=== PATIENT | male | born 1990 | race Caucasian/White ===

== ENCOUNTER 2021-08-04 11:18 | Emergency (ER) | payer BC ==
--- NOTE | 2021-08-04 12:02 | RAD REPORT ---
EXAM DESCRIPTION: Alonso Sanchez (2 Views)08/04/2021 11:57 am CLINICAL HISTORY: Chest pain COMPARISON: None FINDINGS: The lungs appear clear of acute infiltrate. The heart is normal size IMPRESSION: No acute abnormalities displayed
[2021-08-04 13:36] LABS: ALT/SGPT 46 U/L (12-78); AST/SGOT 23 U/L (15-37); Alkaline Phosphatase 70 U/L (45-117); BUN Blood Urea Nitrogen 10 mg/dL (7-18); Bicarbonate 26 mmol/L (21-32); Bilirubin Direct 0.2 mg/dL (0-0.2); Bilirubin Total 0.6 mg/dL (0.2-1.0); Glucose Level 93 mg/dL (74-106); Potassium 3.9 mmol/L (3.5-5.1); Protein, Total 7.9 g/dL (6.4-8.2); Sodium Level 141 mmol/L (136-145); Troponin (Emerg Dept Use Only) < 0.02 ng/mL (0.0-0.045)
--- NOTE | 2021-08-04 13:36 | RAD REPORT ---
EXAM DESCRIPTION: CT - Chest For Pe Angio - 08/04/2021 1:26 pm CLINICAL HISTORY: Chest pain. CHEST PAIN COMPARISON: No comparisons TECHNIQUE: CT angiogram of the pulmonary arteries was performed with MIP. All CT scans are performed using dose optimization technique as appropriate and may include automated exposure control or mA/KV adjustment according to patient size. FINDINGS: No evidence of pulmonary thromboembolism. No acute aortic finding demonstrated. The lungs are clear. No significant pericardial or pleural fluid. No concerning bony finding. IMPRESSION: No evidence of pulmonary thromboembolism. No acute lung findings.
[2021-08-04 13:45] LABS: Absolute Lymphocytes (CBC) 1.3 K/uL (0.7-4.9); Basophils % 0.5 % (0-1.3); Lymphocytes % 14.7 % (15.3-44.8); MPV 7.6 fL (7.6-11.3); RBC Red Blood Cell Count 4.79 M/uL (4.33-5.43)
--- NOTE | 2021-08-04 13:52 | ER ---
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 Happened night but went away. Coronavirus screen: Vaccine status: Patient reports being unvaccinated. Ebola Screen: Patient negative for fever greater than or equal to 101.5 degrees Fahrenheit, and additional compatible Ebola Virus Disease symptoms Patient denies exposure to infectious person. Patient denies travel to an Ebola-affected area in the 21 days before illness onset. Initial Sepsis Screen: Does the patient meet any 2 criteria? HR > 90 bpm. Initial Sepsis Screen: Does the patient have a suspected source of infection? No. Patient's initial sepsis screen is negative. Risk Assessment: Do you want to hurt yourself or someone else? Patient reports no desire to harm self or others. Onset of symptoms was July 31, 2021. 11:42 Method Of Arrival: Ambulatory ss 11:42 Acuity: DARLENE 3 ss Triage Assessment: 11:48 General: Appears uncomfortable, Behavior is calm, cooperative, anxious. Pain: Complains ss of pain in chest. Cardiovascular: Reports chest pain. Respiratory: Reports shortness of breath at rest Airway is patent Trachea midline. Historical: - Allergies: 11:47 No Known Allergies; ss - Home Meds: 11:47 None [Active]; ss - PMHx: 11:47 None; ss - PSHx: 11:47 None; ss - Immunization history:: Adult Immunizations up to date. - Social history:: Smoking status: Patient reports the use of cigarette tobacco products, denies chronic smoking, but will smoke occasionally, Patient uses alcohol, on a daily basis. - Family history:: not pertinent. - Hospitalizations: : No recent hospitalization is reported. Screenin:15 Abuse screen: Denies threats or abuse. Denies injuries from another. Nutritional ss screening: On no prescribed diet. Tuberculosis screening: Never had TB. Fall Risk None identified. Assessment: 12:15 General: Appears in no apparent distress. comfortable, Behavior is calm, cooperative, ss Denies fever, feeling ill, fatigue, chills. Pain: Complains of pain in chest Pain currently is 7 out of 10 on a pain scale. Quality of pain is described as crampy, Pain began suddenly, Is continuous. Neuro: Level of Consciousness is awake, alert, obeys commands, Oriented to person, place, time, situation. Cardiovascular: Capillary refill < 3 seconds is brisk in bilateral fingers. Respiratory: Airway is patent Respiratory effort is even, unlabored, Respiratory pattern is regular, symmetrical. GI: No signs and/or symptoms were reported involving the gastrointestinal system. : No signs and/or symptoms were reported regarding the genitourinary system. EENT: Nares are clear Oral mucosa is moist. Derm: Skin is intact, is healthy with good turgor, Skin is dry, Skin is pink, warm \T\ dry. normal. Musculoskeletal: Circulation, motion, and sensation intact. Range of motion: intact in all extremities, Swelling absent. 14:13 Reassessment: Patient and/or family updated on plan of care and expected duration. Pain ss level reassessed. Patient is alert, oriented x 3, equal unlabored respirations, skin warm/dry/pink. Vital Signs: 11:42 BP 168 / 121 RA Sitting (auto/lg); Pulse 96; Resp 18; Pulse Ox 100% ; Weight 104.33 kg; ss Height 5 ft. 10 in. (177.80 cm); 11:42 BP 180 / 117 RA Sitting (auto/lg); ss 13:39 Temp 98.6(TE); ss 14:11 BP 165 / 84; Pulse 83; Resp 17; Temp 98.5(O); Pulse Ox 100% ; Pain 2/10; jh6 11:42 Body Mass Index 33.00 (104.33 kg, 177.80 cm) ED Course: 11:18 Patient arrived in ED. mr 11:47 Triage completed. ss 11:53 Esteban Sánchez MD is Attending Physician. rn 11:57 XRAY Chest Pa And Lat (2 Views) In Process Unspecified. EDMS 12:55 Clementina Castellon, DENNY is Primary Nurse. ss 13:15 Patient maintains SpO2 saturation greater than 95% on room air. ss 13:15 Inserted saline lock: 22 gauge in left antecubital area, using aseptic technique. Blood ss collected. 13:15 Patient has correct armband on for positive identification. Bed in low position. Call ss light in reach. front desk monitor on. Pulse ox on. NIBP on. 13:[address] [facility] 13:26 CT Chest For PE Angio In Process Unspecified. EDMS 14:11 No provider procedures requiring assistance completed. IV discontinued, intact, ss bleeding controlled, No redness/swelling at site. Pressure dressing applied. 14:11 IV discontinued, intact, bleeding controlled, No redness/swelling at site. Pressure [facility] dressing applied. Administered Medications: No medications were administered Outcome: 13:51 Discharge ordered by . rn 14:11 Discharged to home ambulatory. 14:11 Condition: good 14:11 Demonstrated understanding of instructions, follow-up care. 14:12 Discharged to home ambulatory. 6 14:12 Condition: good 14:12 Discharge instructions given to patient, Instructed on discharge instructions, follow up and referral plans. Demonstrated understanding of instructions, follow-up care. 14:12 Patient left the ED. 6 Signatures: Dispatcher [employer] EDDE GilliamElysia GonzaloEsteban MD MD rn Smirch, Shelby, RN RN ss Hastedt, Jennifer, RN RN [facility]
--- NOTE | 2021-08-04 13:52 | EDPHYS ---
Physician Documentation [facility] Name: Kemal Alvarez Age: 30 yrs Sex: Male : 1990 Arrival Date: 08/04/2021 Time: 11:18 Bed 12 Private MD: ED Physician Esteban Sánchez HPI: 08/04 12:37 This 30 yrs old Male presents to ER via Ambulatory with complaints of Chest rn Tightness, Breathing Difficulty. 12:37 The patient or guardian reports chest pain that is located primarily in the chest rn diffusely. The pain does not radiate. Associated signs and symptoms: Pertinent positives: cough, Pertinent negatives: diaphoresis, dizziness, near syncope, palpitations, shortness of breath, syncope, vomiting. The chest pain is described as aching, tightness. Modifying factors: The symptoms are alleviated by nothing. the symptoms are aggravated by breathing, deep breath. Severity of pain: At its worst the pain was moderate in the emergency department the pain has improved. The patient has not recently seen a physician. 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 No trauma. No abd pain/vomiting. Reports worse with deep breath. Started tight and across chest, now just dull. + smoker. NO hx of dvt/PE. No recent vaccination. No COVID recently. . Historical: - Allergies: 11:47 No Known Allergies; ss - Home Meds: 11:47 None [Active]; ss - PMHx: 11:47 None; ss - PSHx: 11:47 None; ss - Immunization history:: Adult Immunizations up to date. - Social history:: Smoking status: Patient reports the use of cigarette tobacco products, denies chronic smoking, but will smoke occasionally, Patient uses alcohol, on a daily basis. - Family history:: not pertinent. - Hospitalizations: : No recent hospitalization is reported. ROS: 12:37 Constitutional: Negative for fever, chills, and weight loss, Eyes: Negative for injury, rn pain, redness, and discharge, Neck: Negative for injury, pain, and swelling, Cardiovascular: Negative for palpitations, and edema, Respiratory: Negative for shortness of breath, wheezing Abdomen/GI: Negative for abdominal pain, nausea, vomiting, diarrhea, and constipation, Back: Negative for injury and pain, MS/Extremity: Negative for injury and deformity, Skin: Negative for injury, rash, and discoloration, Neuro: Negative for headache, weakness, numbness, tingling, and seizure. Exam: 12:37 Constitutional: This is a well developed, well nourished patient who is awake, alert, rn and in no acute distress. Sitting on edge of bed, appears anxious Head/Face: Normocephalic, atraumatic. Eyes: Periorbital areas with no swelling, redness, or edema. Chest/axilla: Normal chest wall appearance and motion. Nontender with no deformity Cardiovascular: tachycardic, regular. No pulse deficits. Respiratory: No increased work of breathing, no retractions or nasal flaring. Abdomen/GI: Soft, non-tender Skin: Warm, dry MS/ Extremity: Pulses equal, no cyanosis. Neuro: Awake and alert, GCS 15 13:28 ECG was reviewed by the Attending Physician. rn Vital Signs: 11:42 BP 168 / 121 RA Sitting (auto/lg); Pulse 96; Resp 18; Pulse Ox 100% ; Weight 104.33 kg; ss Height 5 ft. 10 in. (177.80 cm); 11:42 BP 180 / 117 RA Sitting (auto/lg); ss 13:39 Temp 98.6(TE); ss 14:11 BP 165 / 84; Pulse 83; Resp 17; Temp 98.5(O); Pulse Ox 100% ; Pain 2/10; jh6 11:42 Body Mass Index 33.00 (104.33 kg, 177.80 cm) MDM: 11:53 Patient medically screened. rn 13:50 Differential diagnosis: acute pericarditis, chest wall pain, costochondritis, rn esophagitis, gastroesophageal reflux disease (GERD), pleurisy, pneumonia, pneumothorax, pulmonary embolus. Data reviewed: vital signs, nurses notes, lab test result(s), EKG, radiologic studies, CT scan, plain films, and as a result, I will discharge patient. Data interpreted: satellite project site monitor: rate is 96 beats/min, rhythm is normal sinus rhythm, regular, with no ectopy, Interpretation: normal rate, normal rhythm, Pulse oximetry: on room air is 100 %. Interpretation: normal. Counseling: I had a detailed discussion with the patient and/or guardian regarding: the historical points, exam findings, and any diagnostic results supporting the discharge/admit diagnosis, lab results, radiology results, the need for outpatient follow up, to return to the emergency department if symptoms worsen or persist or if there are any questions or concerns that arise at home. Response to treatment: the patient's symptoms have mildly improved after treatment, and as a result, I will discharge patient. Special discussion: Based on the patient's history, exam, and Dx evaluation, there is no indication for emergent intervention or inpatient Tx. It is understood by the patient/guardian that if the Sx's persist or worsen they need to return immediately for re-evaluation. I discussed with the patient/guardian in detail that at this point there is no indication for admission to the hospital. It is understood, however, that if the symptoms persist or worsen the patient needs to return immediately for re-evaluation. 08/04 12:11 Order name: Basic Metabolic Panel; Complete Time: 13:42 rn 08/04 12:11 Order name: CBC with Diff; Complete Time: 14:04 rn 08/04 11:36 Order name: XRAY Chest Pa And Lat (2 Views); Complete Time: 12:03 rn 08/04 12:11 Order name: LFT's; Complete Time: 13:42 rn 08/04 12:11 Order name: Troponin (emerg Dept Use Only); Complete Time: 13:42 rn 08/04 12:11 Order name: CT Chest For PE Angio; Complete Time: 13:42 rn 08/04 12:11 Order name: EKG; Complete Time: 12:12 rn 08/04 12:11 Order name: Cardiac monitoring; Complete Time: 13:15 rn 08/04 12:11 Order name: EKG - Nurse/Tech; Complete Time: 13:15 rn 08/04 12:11 Order name: IV Saline Lock; Complete Time: 13:15 rn 08/04 12:11 Order name: Labs collected and sent; Complete Time: 13:15 rn 08/04 12:11 Order name: O2 Per Protocol; Complete Time: 13:15 rn 08/04 12:11 Order name: O2 Sat Monitoring; Complete Time: 13:15 rn 08/04 13:21 Order name: Labs - recollect needed: recollect cbc; Complete Time: 13:39 bd EC:28 Rate is 80 beats/min. Rhythm is regular. QRS Emerson is Normal. VA interval is normal. QRS rn interval is normal. QT interval is normal. No Q waves. T waves are Normal. No ST changes noted. Clinical impression: NSR w/ Non-specific ST/T Changes. Interpreted by me. Reviewed by me. Administered Medications: No medications were administered Disposition Summary: 08/04/21 13:51 Discharge Ordered Location: Home rn Problem: new rn Symptoms: have improved rn Condition: Stable rn Diagnosis - Chest pain, unspecified rn Followup: rn - With: Private Physician - When: As needed - Reason: Recheck today's complaints, Re-evaluation by your physician Discharge Instructions: - Discharge Summary Sheet rn - Nonspecific Chest Pain, Adult rn Forms: - Medication Reconciliation Form rn - Thank You Letter rn - Antibiotic group burner machine - Prescription Opioid Use rn Signatures: Dispatcher [employer] Shelia Mckeon Roman, MD MD rn Smirch, Shelby, RN RN ss
[2021-08-04 14:21] VITALS: O2SAT 100
[2021-08-04 14:24] VITALS: BP 165/84; TEMP 98.5
--- NOTE | 2021-08-05 12:28 | EKG ---
Test Date: 2021-08-04 Test Time: 13:11:31 Masonry Instructor: MEASUREMENT RESULTS: Intervals: Rate: 80 UT: 160 QRSD: 80 QT: 340 QTc: 392 Libby: P: 21 UT: 160 QRS: 6 T: 32 INTERPRETIVE STATEMENTS: Normal sinus rhythm Possible Left atrial enlargement Borderline ECG No previous ECG available for comparison Electronically Signed On 08-05-21 12:25:53 INFANTRY ASSAULTMAN by Saturnino Pope
== END 2021-08-04 14:12 | disposition home or self-care (01) ==
LOC: ER 11:18
DX: R07.9 Chest pain, unspecified (principal)
CPT/HCPCS: 93005; 85025; 80048; 36415; 82565; 80076; 84484; 71275; 71046; 99285; Q9967